=== PATIENT | female | born 1985 | race Caucasian/White ===

== ENCOUNTER 2019-06-20 10:36 | Emergency (ER) | payer MEDICAID ==
[~2019-06-20] VITALS: Ht 152.4 cm; Wt 104.8 kg
[2019-06-20 10:45] VITALS: Ht 152.4 cm; Wt 104.8 kg
[2019-06-20 15:45] VITALS: BP 138/74
== END 2019-06-20 15:45 | disposition home or self-care (01) ==
LOC: ED 10:36
DX: J45.901 Unspecified asthma with (acute) exacerbation (principal)
CPT/HCPCS: J3535; J7512; J7613; J7644

== ENCOUNTER 2020-03-15 08:49 | Emergency (ER) | payer MEDICAID ==
[~2020-03-15] VITALS: Ht 152.4 cm; Wt 102.1 kg
[2020-03-15 09:01] VITALS: Ht 152.4 cm; Wt 102.1 kg
[2020-03-15 10:21] VITALS: BP 131/87
== END 2020-03-15 10:21 | disposition home or self-care (01) ==
LOC: ED 08:49
DX: J45.901 Unspecified asthma with (acute) exacerbation (principal); Z76.0 Encounter for issue of repeat prescription
CPT/HCPCS: J7512